=== PATIENT | female | born 1945 | race Caucasian/White ===

== ENCOUNTER 2021-07-14 20:18 | Emergency (ER) | payer MEDICARE ==
[~2021-07-14] VITALS: Ht 165.1 cm; Wt 115.7 kg
[~2021-07-14 20:18] MED LIST: ASPI325 PO; ASPI81CH PO; CHOL10002 PO; FOLI1 PO; LISI5 PO; METTREX2.5 PO; OTEZLA30 MG PO; SIMV10 PO; VIT D; WARF5 PO; Zocor PO
[2021-07-14 22:11] LABS: International Normalized Ratio 2.25; Prothrombin Time Results 22.4 Sec (9.7-11.5)
[2021-07-14] MEDS ORDERED: HYDR1TAB94 PO (22:25)
== END 2021-07-14 23:30 | disposition home or self-care (01) ==
LOC: ER 20:18
PROVIDERS: Emergency Medicine
DX: M79.621 Pain in right upper arm (principal); I10 Essential (primary) hypertension; Z79.899 Other long term (current) drug therapy; Z87.891 Personal history of nicotine dependence; W19.XXXA Unspecified fall, initial encounter
CPT/HCPCS: 29105; 36415; 73060; 85610; 96374; 96375; 99284-25; A9270; J1170; J2405

== ENCOUNTER 2021-07-15 16:19 | Emergency (ER) | payer MEDICARE ==
[~2021-07-15] VITALS: Ht 165.1 cm; Wt 117.9 kg
[~2021-07-15 16:19] MED LIST changes: +HYDR1TAB94 PO
== END 2021-07-15 16:43 | disposition home or self-care (01) ==
LOC: ER 16:19
DX: S42.201A Unspecified fracture of upper end of right humerus, initial encounter for closed fracture (principal); X58.XXXA Exposure to other specified factors, initial encounter; Z79.899 Other long term (current) drug therapy; Z79.01 Long term (current) use of anticoagulants; I10 Essential (primary) hypertension; E78.00 Pure hypercholesterolemia, unspecified; Z87.891 Personal history of nicotine dependence
CPT/HCPCS: 29105; 99282-25

== ENCOUNTER 2021-07-25 12:58 | Inpatient (IN) | payer OTHER, MEDICARE ==
[~2021-07-25] VITALS: Ht 165.1 cm; Wt 112.2 kg
[2021-07-25 15:39] LABS: International Normalized Ratio 1.62; Prothrombin Time Results 16.5 Sec (9.7-11.5)
--- NOTE | 2021-07-25 19:25 | NUR ---
SHIFT SUMMARY DIRECT ADMIT TO SURGICAL FLOOR FRO R HUMAL FX, A/O X4, VSS, TOLERATING PO, AMBULATING c SBA, VOIDING WELL. GETS UP TO BSC WITH SOME ASSISTANCE, REPORTS MINIMAL PAIN WHILE IN BED c HOB ELEVATED. PT EDUCATED ON PLAN FOR SURGERY, VIRIDIANA RN INFORMED TO STOP HEPARIN DROP BY [address] REQUEST. NO ACUTE EVENTS THIS SHIFT. CALL LIGHT IN REACH, REPORT GIVEN TO VIRIDIANA RN.
[2021-07-26 01:47] LABS: BASOPHILS PERCENT AUTO 1 % (0-2); EOSINOPHILS ABSOLUTE AUTO 0.44 K/mm3 (0.00-0.68); EOSINOPHILS PERCENT AUTO 5 % (0-6); Hematocrit 29.9 % (33.0-51.0); Hemoglobin 9.8 g/dL (11.5-16.0); IMMATURE GRAN ABSOLUTE AUTO 0.02 K/mm3 (0.00-0.10); IMMATURE GRAN PERCENT AUTO 0 % (0-1); LYMPHOCYTES ABSOLUTE AUTO 2.01 K/mm3 (0.84-5.20); LYMPHOCYTES PERCENT AUTO 23 % (21-46); MONOCYTES ABSOLUTE AUTO 0.79 K/mm3 (0.16-1.47); MONOCYTES PERCENT AUTO 9 % (4-13); Mean Corpuscular HGB 30.4 pg (26.0-34.0); Mean Corpuscular HGB Conc 32.8 g/dL (31.5-36.5); Mean Corpuscular Volume 93 fL (80-100); Mean Platelet Volume 9.1 fL (9.1-12.4); NEUTROPHILS ABSOLUTE AUTO 5.57 K/mm3 (1.96-9.15); NEUTROPHILS PERCENT AUTO 63 % (41-73); Platelet Count 273 K/mm3 (150-400); RDW Coefficient Variation 15.7 % (11.7-14.2); RDW Standard Deviation 52.7 fL (35.1-46.3); Red Blood Cell Count 3.22 M/mm3 (3.80-5.20); White Blood Cell Count 8.93 K/mm3 (4.00-11.30)
[2021-07-26 02:02] LABS: Magnesium, Blood 2.2 mg/dL (1.6-2.4)
[2021-07-26 02:03] LABS: Bun/Creatinine Ratio 22.6 (12.0-20.0); Calcium, Blood 8.6 mg/dL (8.5-10.1); Creatinine, Blood 0.98 mg/dL (0.40-1.00); Potassium, Blood 4.1 mmol/L (3.5-5.5)
--- NOTE | 2021-07-26 04:30 | NUR ---
PT IS A&OX4, MODERATE ASSIST TO BSC AND CALLS APPROPRIATELY. SURGERY SCHEDULED IN THE MORNING. PT IS ON A HEPARIN GTT, STOPPED AT 0330 FOR AM SURGERY, PT HAS BEEN NPO SINCE MIDNIGHT. PAIN IS WELL CONTROLLED WITH 1 NORCO TAB. PT EDUCATED ON PROCEEDURE IN THE MORNING, PLACED IN HOSPITAL GOWN FOR SURGERY. PT SLEEPS 8+ HOURS THIS SHIFT. WILL CONTINUE TO MONITOR
[2021-07-26 05:46] LABS: International Normalized Ratio 1.36
--- NOTE | 2021-07-26 14:09 | NUR ---
TRANSFER SUMMARY CALLED AND LEFT MESSAGE FOR RN RECEIVING PT TRANSFER TO GIVE REPORT. ALL PERSONAL ITEMS HAVE BEEN DELIVERED TO ICU6.
--- NOTE | 2021-07-26 14:52 | NUR ---
TRANSFER FROM PACU TO ICU: SHERON Celis, DOOR SERVICEMAN, HAS RECEIVED REPORT FROM FEROZ Oneill WARDROBE STYLIST. ON ARRIVAL TO ICU, THE PT IS AWAKE, A&O TO ALL. SHE HAS C/O PAIN TO RIGHT ARM/ SHOULDER S/P FRACTURED RIGHT ARM & RIGHT PROXIMAL HUMERUS ORIF THIS AM. CLEAR DRESSING IN PLACE TO RIGHT UPPER ARM, RIGHT UPPER ARM ECCHYMOTIC W/ AREAS OF DARK PURPLE BRUISING NOTED. LS ARE DIM IN BASES, PT ON 4L NC W/ O2 SATS > 94%. MONITOR SHOWS SR W/ HR 110s ON ARRIVAL, NOW DECREASED TO 90s. BP READINGS INCONSISTENT WHEN TAKEN ON ANGELA & LT FOREARM, READING 70s/60s. THE PT DOES NOT OTHERWISE PRESENT HYPOTENSIVE; REMAINS FULLY AWAKE, A&O, NORMAL HR. HX SUBCLAVIAN STEAL NOTED IN PT's H&P. WHEN DISCUSSED W/ PT, SHE STS THAT THE LEFT ARM GENERALLY GIVES "BAD" BLOOD PRESSURE READINGS. BP WRIST CUFF MOVED TO PT's LEFT ANKLE W/ MULTIPLE READINGS CONSISTENTLY 110s/70s. THE PT HAS REQUIRED NO PHENYLEPHRINE SINCE ARRIVAL TO ICU. SHE DENIES GI COMPLAINTS, IS TOLERATING SIPS OF WATER WELL. ARRIETA PLACED IN OR DRAINING YELLOW URINE W/ MOD AMNTS OUTPUT. SKIN CONDITION OVERALL INTACT, SURGICAL SITE TO SIMON WN. NURSING TISSUE TECHNOLOGIST DUSTIN Nogueira, HAS BEEN MADE AWARE OF PT NOT REQUIRING PHENYLEPHRINE DRIP OR NEEDING AN ICU BED POST-OPERATIVELY. HE HAS CHECKED IN W/ SURGICAL FLOOR & THE PT's ROOM IS STILL AVAILABLE. THIS RN HAS REPORTED OFF TO MAURICE Celis RN TO ASSUME CARE. ARNALDO ORTIZ, HAS TAKEN THE PT TO ROOM 214 ON SURGICAL FLOOR AT APPROX 1510.
--- NOTE | 2021-07-26 15:38 | NUR ---
TRANSFER BACK TO ROOM 214 RECEIVED REPORT FROM ABHINAV DOBBS. TAKING BP ON LEFT ANKLE. PT A&OX4, VSS/4LNC/BIOX ON, SCDS ON, JOAN PO, ARRIETA PATENT & DRAINING YELLOW URINE, STAT LOCK ON, OFF FLOOR, REPOSITIONED- PT ROLLS WELL AND ASSISTS. FAMILY AT BEDSIDE. WILL REPORT TO KARINE KEMP RN.
[2021-07-27 03:56] LABS: Hematocrit 25.5 % (33.0-51.0); Hemoglobin 8.3 g/dL (11.5-16.0)
[2021-07-27 04:11] LABS: International Normalized Ratio 1.37; Prothrombin Time Results 14.1 Sec (9.7-11.5)
--- NOTE | 2021-07-27 06:15 | NUR ---
SUMMARY PAIN MANAGED WELL T/OUT SHIFT. PT HAD NO NEW ISSUES NOTED. PT DRESSING C/D/I. PT SPO2 MAINTAINED >92%. PT CURRENTLY SLEEPING IN NO DISTRESS.
--- NOTE | 2021-07-27 19:02 | NUR ---
POD1 ORIF RT HUMERUS. BRUISING AND SWELLING AROUND INCISION SITE. DRESSING C/D/I. PAIN CONTROLLED WITH PRN NORCO; GIVEN ONCE THIS SHIFT AT 1030. WET, PRODUCTIVE COUGH WITH DIMINISHED BREATH SOUNDS BILAT BASES. 40MG IV LASIX X2 ARRIETA REMOVED 150ML POSTREMOVAL VOID. NO POSTSURGICAL STOOL; MIRALAX PER DR HERNANDEZ GIVEN. TOLERATING PO INTAKE. SCDS ON. 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 AMBULATES AND TRANSFER WITH QUAD FELIPE AND GAIT BELT TO [facility] PER PT/OT. WILL REPORT TO ONGOING RN.
[2021-07-28 05:24] LABS: BASOPHILS ABSOLUTE AUTO 0.07 K/mm3 (0.00-0.23); BASOPHILS PERCENT AUTO 1 % (0-2); EOSINOPHILS ABSOLUTE AUTO 0.13 K/mm3 (0.00-0.68); EOSINOPHILS PERCENT AUTO 1 % (0-6); Hematocrit 23.2 % (33.0-51.0); Hemoglobin 7.6 g/dL (11.5-16.0); IMMATURE GRAN ABSOLUTE AUTO 0.05 K/mm3 (0.00-0.10); IMMATURE GRAN PERCENT AUTO 0 % (0-1); LYMPHOCYTES ABSOLUTE AUTO 1.53 K/mm3 (0.84-5.20); LYMPHOCYTES PERCENT AUTO 12 % (21-46); MONOCYTES ABSOLUTE AUTO 1.33 K/mm3 (0.16-1.47); MONOCYTES PERCENT AUTO 11 % (4-13); Mean Corpuscular HGB 30.4 pg (26.0-34.0); Mean Corpuscular HGB Conc 32.8 g/dL (31.5-36.5); Mean Corpuscular Volume 93 fL (80-100); Mean Platelet Volume 9.2 fL (9.1-12.4); NEUTROPHILS ABSOLUTE AUTO 9.53 K/mm3 (1.96-9.15); NEUTROPHILS PERCENT AUTO 75 % (41-73); Platelet Count 253 K/mm3 (150-400); RDW Coefficient Variation 15.5 % (11.7-14.2); RDW Standard Deviation 51.9 fL (35.1-46.3); White Blood Cell Count 12.64 K/mm3 (4.00-11.30)
[2021-07-28 05:38] LABS: Bun/Creatinine Ratio 22.2 (12.0-20.0); Calcium, Blood 8.3 mg/dL (8.5-10.1); Creatinine, Blood 1.17 mg/dL (0.40-1.00); Potassium, Blood 3.8 mmol/L (3.5-5.5)
[2021-07-28 05:45] LABS: International Normalized Ratio 2.09; Prothrombin Time Results 20.9 Sec (9.7-11.5)
--- NOTE | 2021-07-28 06:03 | NUR ---
SUMMARY PT VOIDING WELL AND HAD MULTIPLE BM'S. PT HAS BEEN BREATHING WELL AND IS ON RA MAJORITY OF THE TIME. PT DOES BECOME SOB W/ EXERTION AND NEEDS SOME O2. PT IS ABLE TO GET UP WITH ASSISTANCE TO BSC. PT DRESSING IS C/D/I. PT SLEPT OFF AND ON DURING SHIFT. PT CURRENTLY SLEEPING IN NO DISTRESS. CALL LIGHT IN REACH.
--- NOTE | 2021-07-28 07:38 | NUR ---
ASSUMED CARE: PT RESTING QUIETLY, NSR AT 92 ON TELE. NO ACUTE NEEDS AT THIS TIME.
[2021-07-28 10:43] LABS: Influenza A, PCR NEGATIVE (NEGATIVE); Influenza B, PCR NEGATIVE (NEGATIVE); Resp Syncytial Virus, PCR NEGATIVE (NEGATIVE); SARS-Cov-2 (COVID-19) PCR, MMC NEGATIVE (NEGATIVE)
--- NOTE | 2021-07-28 13:56 | NUR ---
NOTED PT'S H AND H TRENDING DOWN. CONTACTED DR LOPEZ REGARDING THIS. DR EVERETT PT HAD A LARGE EBL DURING SURGERY AND HAD A BONE SURGERY THAT COULD AFFECT NUMBERS WELL LARGE AMOUNTS OF FLUIDS. DR EVERETT PT WILL NEED TO HAVE LABS RECHECKED OUTPT BUT NO NEW ORDERS AT THIS TIME.
--- NOTE | 2021-07-28 16:28 | NUR ---
[facility] AND GIVEN TO DILIA WINTER. PT STATED SHE WOULD CALL HER SON AND UPDATE HIM ON NEW LOCATION. PT TRANSFERRED TO WHEEL CHAIR VIA 4-POINT CANE AND GAIT BELT. ESCORTED OUT VIA WHEEL CHAIR BY [place] PARTITION ASSEMBLY MACHINE OPERATOR. IV DC'S EARLIER THIS SHIFT.
== END 2021-07-28 16:18 | DRG 492 ==
LOC: SURS 12:58 → ICUE 07-26 13:59 → SURS 07-26 15:10
PROVIDERS: Orthopaedic Surgery; Pharmacist; ADMIT Internal Medicine
PROC: 0PSF04Z Reposition Right Humeral Shaft with Internal Fixation Device, Open Approach (ICD-10-PCS; principal; 2021-07-26 07:30)
DX: S42.201A Unspecified fracture of upper end of right humerus, initial encounter for closed fracture (principal); J96.01 Acute respiratory failure with hypoxia; R57.8 Other shock; G45.8 Other transient cerebral ischemic attacks and related syndromes; D62 Acute posthemorrhagic anemia; Z68.41 Body mass index [BMI] 40.0-44.9, adult; Z20.822 Contact with and (suspected) exposure to COVID-19; J44.9 Chronic obstructive pulmonary disease, unspecified; E66.01 Morbid (severe) obesity due to excess calories; E78.5 Hyperlipidemia, unspecified; I73.9 Peripheral vascular disease, unspecified; Z86.718 Personal history of other venous thrombosis and embolism; Z79.01 Long term (current) use of anticoagulants; Z98.41 Cataract extraction status, right eye; Z98.42 Cataract extraction status, left eye; Z90.710 Acquired absence of both cervix and uterus; Z87.891 Personal history of nicotine dependence; Z79.899 Other long term (current) drug therapy; W01.198A Fall on same level from slipping, tripping and stumbling with subsequent striking against other object, initial encounter
CPT/HCPCS: 0241U; 36415; 71045; 80048; 83735; 85014; 85018; 85025; 85520; 85610; 85730; 97110; 97116; 97162; 97166; 97530; 97535; A9270; J0171; J0330; J0690; J1100; J1644; J1940; J2250; J2370; J2405; J2704; J3010; J7120

== ENCOUNTER 2021-09-17 10:47 | Day surgery (SDC) | payer MEDICARE ==
--- NOTE | 2021-09-17 12:26 | NUR ---
09/17/21 1226 Mago Bethea LATE ENTRY. PT BROUGHT BACK TO PRE OP AREA. DR WANG NOTIFIED VIA PHONE CALL OF PT'S LAB RESULTS FROM YESTERDAY. PT HAD PT 17.5 AND INR 1.73. PROCEDURE WAS CANCELLED BY DR WANG WITH PLANS TO RESCHEDULE PT FOR SURGERY ON 09/22/21. DR WANG ADVISED PT TO DISCONTINUE COUMADIN UNTIL SURGERY DATE CONFIRMED. PT STATED UNDERSTANDING OF SURGERY CANCELLATION. RN NOTIFIED PT'S SON WHO ALSO STATED UNDERSTANING. PT LEFT WITH BEVERAGE, PERSONAL BELONGINGS, AND DR WANG PHONE NUMBER TO CONFIRM NEW SURGERY DATE.
== END 2021-09-17 12:12 | disposition home or self-care (01) ==
LOC: ORSCSDS 10:47
DX: T84.9XXA Unspecified complication of internal orthopedic prosthetic device, implant and graft, initial encounter (principal); Z53.9 Procedure and treatment not carried out, unspecified reason
CPT/HCPCS: J0690; J7120

== ENCOUNTER 2021-09-22 10:50 | Day surgery (SDC) | payer MEDICARE ==
[~2021-09-22] VITALS: Ht 165.1 cm; Wt 108.8 kg
--- NOTE | 2021-09-22 12:14 | NUR ---
History, Chart, Medications and Allergies reviewed before start of procedure.Lungs clear T/O to Auscultation. Pre-Op teaching done. Pt verbalizes understanding.
--- NOTE | 2021-09-22 16:17 | NUR ---
Discharge instructions reviewed with patient. Patient verbalizes understanding. Copy given to patient to take home. Patient States Post-Procedure ride home has been arranged. Discharged via wheelchair to private car for ride home. PATIENT'S SON BRENNA AT BEDSIDE TO REVIEW D/C INSTRUCTIONS. AQUACEL DRESSING CD&I, ICE BAG ON X 20 MIN. AND TAKEN HOME, PATIENT STATES PULLING SENSATION GONE, PATIENT AWARE OF D/C PLAN FOR TYLENOL AND DECLINED PO HYDROCODONE PRIOR TO D/C. TOLERATING SIPS OF WATER. ASSISTED TO GET DRESSED, SLING ON.
== END 2021-09-22 16:10 | disposition home or self-care (01) ==
LOC: ORSCMMR 10:50 → ORD 12:30 → ORSCMMR 12:30
PROVIDERS: Orthopaedic Surgery
PROC: 0PPF04Z Removal of Internal Fixation Device from Right Humeral Shaft, Open Approach (ICD-10-PCS; principal; 2021-09-22 12:30)
DX: T84.9XXA Unspecified complication of internal orthopedic prosthetic device, implant and graft, initial encounter (principal); I10 Essential (primary) hypertension; I25.10 Atherosclerotic heart disease of native coronary artery without angina pectoris; J44.9 Chronic obstructive pulmonary disease, unspecified; Z86.718 Personal history of other venous thrombosis and embolism; Z79.01 Long term (current) use of anticoagulants; Z79.899 Other long term (current) drug therapy
CPT/HCPCS: J0171; J0690; J1100; J2250; J2370; J2405; J2704; J3010; J7120

== ENCOUNTER 2023-05-05 05:52 | Day surgery (SDC) | payer MEDICARE ==
[~2023-05-05] VITALS: Ht 165.1 cm; Wt 103.0 kg
[2023-05-05] VITALS (18 sets, daily range): BP systolic 85–134; BP diastolic 59–105
[~2023-05-05 05:52] MED LIST changes: -CHOL10002 PO; +VITAMIN D31000 UNI1 PO; +ZOCOR20 MG PO
--- NOTE | 2023-05-05 09:21 | NUR ---
PT RETURNED TO RECOVERY ROOM IN A RECLINER. RIGHT RADIAL TR BAND SITE SOFT NON-TENDER WITH NO HEMATOMA, NO PULSATILE BLEEDING RIGHT WRIST BOARD IN PLACE. PT DENIES CHEST PAIN. CALL LIGHT IN REACH.
[2023-05-05] MEDS ORDERED: Aspir 8181 MG PO (09:29)
[2023-05-05] MEDS ORDERED: PANT20 PO (09:30)
[2023-05-05] MEDS ORDERED: CLOP75 PO (09:30)
--- NOTE | 2023-05-05 10:13 | NUR ---
DR CHOUDHURY IN ROOM TO SEE PT.
--- NOTE | 2023-05-05 10:29 | NUR ---
DR CHOUDHURY AWARE OF POST PROCEDURE BLOOD PRESSURES - NO NEW ORDERS.
[2023-05-05] MEDS ORDERED: ASPI81CH PO (10:34)
--- NOTE | 2023-05-05 11:36 | NUR ---
FULL REPORT PROVIDED ETELVINA Oneill RN TO ASSUME CARE OF PT IN RECOVERY ROOM.
--- NOTE | 2023-05-05 11:46 | NUR ---
radial site soft and non-tender per pt. no bleeding noted.
--- NOTE | 2023-05-05 12:23 | NUR ---
2cc removed from tr band. site soft and non-tender per pt. no bleeding noted.
--- NOTE | 2023-05-05 12:53 | NUR ---
pt ambulated to restroom w/o assistance. 2cc removed from tr band. site soft and non-tender per pt. no bleeding noted.
--- NOTE | 2023-05-05 15:03 | NUR ---
PT GIVEN DC INSTRUCTIONS AND VERBALIZED UNDERSTANDING. IV OUT. PT CHNAGED. RADIAL SITE SOFT AND NON-TENDER PER PT. NO BLEEDING NOTED. CLOTH DOT AND ARM BOARD APPLIED. [facility] AND HELPED LOAD INTO CAR. SON TO DRIVE PT HOME.
== END 2023-05-05 15:20 | disposition home or self-care (01) ==
LOC: MHTC 05:52
DX: I25.118 Atherosclerotic heart disease of native coronary artery with other forms of angina pectoris (principal); R93.1 Abnormal findings on diagnostic imaging of heart and coronary circulation; I10 Essential (primary) hypertension; E78.5 Hyperlipidemia, unspecified; J44.9 Chronic obstructive pulmonary disease, unspecified; I12.9 Hypertensive chronic kidney disease with stage 1 through stage 4 chronic kidney disease, or unspecified chronic kidney disease; N18.32 Chronic kidney disease, stage 3b; I73.9 Peripheral vascular disease, unspecified; Z79.899 Other long term (current) drug therapy; Z87.891 Personal history of nicotine dependence
CPT/HCPCS: 0715T; 76937; 85347; 92978; 93454; 99152; 99153; A9270; C1725; C1753; C1761; C1769; C1874; C1887; C1894; C9600; J0461; J1644; J2250; J3010; J7030; J7050; Q9967

== ENCOUNTER → 2023-12-06 | Outpatient (CLI) | payer MEDICARE ==
[~2023-12-06] MED LIST changes: +Aspir 8181 MG PO; +CLOP75 PO; +PANT20 PO
== END ==
LOC: LAB SHORT 11:26 → LAB 11:26
DX: S81.812A Laceration without foreign body, left lower leg, initial encounter (principal)
CPT/HCPCS: 87070; 87075; 87077; 87147; 87186; 87205

== ENCOUNTER → 2024-05-15 | Outpatient (CLI) | payer MEDICARE ==
[2024-05-15 15:28] LABS: BASOPHILS ABSOLUTE AUTO 0.04 K/mm3 (0.00-0.23); BASOPHILS PERCENT AUTO 1 % (0-2); EOSINOPHILS ABSOLUTE AUTO 0.12 K/mm3 (0.00-0.68); EOSINOPHILS PERCENT AUTO 2 % (0-6); Hematocrit 36.1 % (33.0-51.0); Hemoglobin 11.8 g/dL (11.5-16.0); IMMATURE GRAN ABSOLUTE AUTO 0.01 K/mm3 (0.00-0.10); IMMATURE GRAN PERCENT AUTO 0 % (0-1); LYMPHOCYTES ABSOLUTE AUTO 1.05 K/mm3 (0.84-5.20); LYMPHOCYTES PERCENT AUTO 17 % (21-46); MONOCYTES PERCENT AUTO 5 % (4-13); Mean Corpuscular HGB 26.7 pg (26.0-34.0); Mean Corpuscular HGB Conc 32.7 g/dL (31.5-36.5); Mean Corpuscular Volume 82 fL (80-100); Mean Platelet Volume 10.1 fL (9.1-12.4); NEUTROPHILS ABSOLUTE AUTO 4.64 K/mm3 (1.96-9.15); NEUTROPHILS PERCENT AUTO 75 % (41-73); Platelet Count 230 K/mm3 (150-400); RDW Coefficient Variation 16.3 % (11.7-14.2); RDW Standard Deviation 47.9 fL (35.1-46.3); Red Blood Cell Count 4.42 M/mm3 (3.80-5.20); White Blood Cell Count 6.16 K/mm3 (4.00-11.30)
[2024-05-15 16:35] LABS: Albumin, Blood 3.5 g/dL (3.4-5.0); Albumin/Globulin Ratio 0.8 (0.8-1.8); Bilirubin, Total 0.2 mg/dL (0.1-1.0); Bun/Creatinine Ratio 22.4 (12.0-20.0); Calcium, Blood 9.3 mg/dL (8.5-10.1); Creatinine, Blood 0.89 mg/dL (0.40-1.00); Globulin, Blood 4.5 g/dL (2.2-4.0); Potassium, Blood 4.5 mmol/L (3.5-5.5); Thyroid Stimulating Hormone 3.81 uIU/mL (0.360-4.800)
== END | disposition home or self-care (01) ==
LOC: LAB 15:23 → LAB SHORT 15:23
PROVIDERS: Chiropractor
DX: R42 Dizziness and giddiness (principal); R53.83 Other fatigue; R82.998 Other abnormal findings in urine
CPT/HCPCS: 80053; 84443; 84484; 85025; 87086

== ENCOUNTER 2025-01-02 23:07 | Emergency (ER) | payer MEDICARE ==
[~2025-01-02] VITALS: Ht 165.1 cm; Wt 97.5 kg
[2025-01-03 00:59] LABS: BASOPHILS ABSOLUTE AUTO 0.08 K/mm3 (0.00-0.23); BASOPHILS PERCENT AUTO 1 % (0-2); EOSINOPHILS ABSOLUTE AUTO 0.28 K/mm3 (0.00-0.68); EOSINOPHILS PERCENT AUTO 4 % (0-6); Hematocrit 36.5 % (33.0-51.0); Hemoglobin 11.9 g/dL (11.5-16.0); IMMATURE GRAN ABSOLUTE AUTO 0.01 K/mm3 (0.00-0.10); IMMATURE GRAN PERCENT AUTO 0 % (0-1); LYMPHOCYTES ABSOLUTE AUTO 1.97 K/mm3 (0.84-5.20); LYMPHOCYTES PERCENT AUTO 26 % (21-46); MONOCYTES ABSOLUTE AUTO 0.53 K/mm3 (0.16-1.47); MONOCYTES PERCENT AUTO 7 % (4-13); Mean Corpuscular HGB Conc 32.6 g/dL (31.5-36.5); Mean Corpuscular Volume 86 fL (80-100); NEUTROPHILS ABSOLUTE AUTO 4.85 K/mm3 (1.96-9.15); NEUTROPHILS PERCENT AUTO 63 % (41-73); NRBC ABSOLUTE 0.00 K/mm3 (0.00-0.02); NRBC Auto 0.0 /100 WBC (0.0-0.2); Platelet Count 287 K/mm3 (150-400); RDW Coefficient Variation 17.6 % (11.7-14.2); RDW Standard Deviation 55.1 fL (35.1-46.3)
[2025-01-03] MEDS ORDERED: NS 1,000 ML IV SCH (01:10)
[2025-01-03 01:13] LABS: Alanine Aminotransfer (ALT/SGP 29.0 U/L (12-78); Albumin, Blood 3.5 g/dL (3.4-5.0); Albumin/Globulin Ratio 0.9 (0.8-1.8); Anion Gap 9.0 mmol/L (3-11); Aspartate Aminotrans (AST/SGOT 18.0 U/L (12-37); Bilirubin, Total 0.3 mg/dL (0.1-1.0); Blood Urea Nitrogen 24.0 mg/dL (8-24); CO2, Blood 25.0 mmol/L (21-32); Calcium, Blood 8.8 mg/dL (8.5-10.1); Chloride, Blood 107.0 mmol/L (98-108); Creatinine, Blood 1.04 mg/dL (0.40-1.00); Globulin, Blood 4.0 g/dL (2.2-4.0); Glucose, Blood 99.0 mg/dL (70-99); Potassium, Blood 4.3 mmol/L (3.5-5.5); Prothrombin Time Results 31.9 Sec (9.7-11.5); Sodium, Blood 137.0 mmol/L (136-145); Total Protein, Blood 7.5 g/dL (6.4-8.2)
[2025-01-03 01:30] VITALS: BP 108/75
== END 2025-01-03 03:30 | disposition home or self-care (01) ==
LOC: ER 23:07
PROVIDERS: Emergency Medicine
DX: K64.9 Unspecified hemorrhoids (principal); E86.0 Dehydration; I10 Essential (primary) hypertension; Z59.89 Other problems related to housing and economic circumstances; Z79.899 Other long term (current) drug therapy; Z79.82 Long term (current) use of aspirin; Z87.891 Personal history of nicotine dependence
CPT/HCPCS: 80053; 85025; 85610; 96360; 99283; J7030

== ENCOUNTER → 2025-01-03 | Outpatient (CLI) | payer MEDICARE ==
[2025-01-03 13:52] LABS: Source, Urine Clean Catch
[2025-01-03 14:00] LABS: Color, Urine Yellow (P-Yellow)
[2025-01-03 14:01] LABS: Bilirubin, Urine Neg (Neg); Glucose Qualitative, Urine Neg (Normal); Ketones, Urine Neg (Neg); Leukocyte Esterase, Urine 1+ (Neg); Protein, Urine Trace (Neg); Red Blood Cells, Urine Not Seen /hpf (0-2); Specific Gravity, Urine 1.025 (1.003-1.022); Urobilinogen, Urine NORM (Normal)
== END ==
LOC: LAB SHORT 13:35 → LAB 13:35
PROVIDERS: Family Medicine
DX: R30.0 Dysuria (principal)
CPT/HCPCS: 81001; 87077; 87086; 87186